=== PATIENT | female | born 1980 | race African-American/Black ===

== ENCOUNTER 2019-12-31 18:28 | Emergency (ER) | payer SELFPAY ==
[~2019-12-31] VITALS: Ht 175.3 cm; Wt 90.9 kg
[2019-12-31] MEDS: KETOROLAC TROMETHAMINE 30 MG/ML VIAL IM ONE (19:32)
[2019-12-31] MEDS: CYCLOBENZAPRINE HCL 10 MG TABLET PO ONE (19:32)
[2019-12-31 20:11] VITALS: BP 138/81
== END 2019-12-31 20:14 | disposition home or self-care (01) ==
LOC: EMS 18:31
DX: S76.012A Strain of muscle, fascia and tendon of left hip, initial encounter (principal); X58.XXXA Exposure to other specified factors, initial encounter; Y93.89 Activity, other specified; Y92.89 Other specified places as the place of occurrence of the external cause; Y99.8 Other external cause status
CPT/HCPCS: 96372; 99283; J1885